=== PATIENT | male | born 1950 | race Two or more races ===

== ENCOUNTER 2017-11-07 17:43 | Emergency (ER) | payer MEDICARE, MEDICAID ==
[~2017-11-07] VITALS: Ht 172.7 cm; Wt 71.0 kg
[2017-11-07 17:49] VITALS: BP 147/87
[2017-11-07] MEDS ORDERED: ACETAMINOPHEN 500MG TABLET PO ONE (18:45)
== END 2017-11-07 19:41 | disposition home or self-care (01) ==
LOC: ER 17:43
DX: M54.2 Cervicalgia (principal); E11.9 Type 2 diabetes mellitus without complications; I10 Essential (primary) hypertension; V49.88XA Car occupant (driver) (passenger) injured in other specified transport accidents, initial encounter; Y93.89 Activity, other specified; Y92.89 Other specified places as the place of occurrence of the external cause; Y99.8 Other external cause status
CPT/HCPCS: 71045; 72125; 99284